=== PATIENT | female | born 1995 | race Caucasian/White ===

== ENCOUNTER 2020-05-14 08:56 | Emergency (ER) | payer BC ==
[~2020-05-14] VITALS: Ht 175.3 cm; Wt 67.3 kg
[2020-05-14] MEDS ORDERED: NORTREL 7/7/71 TAB PO (09:07)
[2020-05-14 09:25] LABS: BASO # 0.1 (0.0-0.2); BASO % 0.7 % (0.0-2.0); EOS # 0.3 (0.0-0.7); EOS % 2.4 % (0-4.0); GRAN # 8.5 (1.4-6.5); GRAN % 75.2 % (42.2-75.2); HEMATOCRIT 41.4 % (37.0-47.0); HEMOGLOBIN 13.5 g/dl (12.5-16.0); LYMPH % 17.9 % (20.0-51.0); MEAN CELL VOLUME 84 fl (80.0-100.0); MEAN CORPUSCULAR HEMOGLOBIN 28 pg (27.0-31.0); MEAN CORPUSCULAR HGB CONC 33 g/dl (33.0-37.0); MEAN PLATELET VOLUME 9.4 fl (7.4-10.4); MONO # 0.4 (0.1-0.6); MONO % 3.4 % (1.7-9.3); PLATELET COUNT 424 K/mm3 (130-400); RED BLOOD COUNT 4.91 M/mm3 (4.10-5.30); REDCELL DISTRIBUTION WIDTH-CV 13.2 % (11.5-14.5)
[2020-05-14 09:40] LABS: ALANINE AMINOTRANSFERASE 10 U/L (4-34); ALBUMIN 4.3 gm/dL (3.5-5.0); ALKALINE PHOSPHATASE 64 U/L (50-136); ANION GAP 11 mmol/L (7-16); AST,SGOT 18 U/L (15-37); BILIRUBIN,TOTAL 0.3 mg/dL (0.0-1.0); BLOOD UREA NITROGEN 13 mg/dL (7-17); C-REACTIVE PROTEIN 2.2 mg/dL (0.0-0.9); CALCIUM 9.2 mg/dL (8.4-10.2); CARBON DIOXIDE 24 mmol/L (22-30); CHLORIDE 102 mmol/L (98-107); CREATININE, serum 0.97 (0.52-1.25); GLUCOSE 102 mg/dL (74-106); POTASSIUM 3.8 mmol/L (3.4-5.0); SODIUM 138 mmol/L (137-145)
[2020-05-14 09:54] LABS: TROPONIN-I < 0.012 ng/mL (0.000-0.035)
[2020-05-14 10:35] VITALS: BP 132/77; PULSE 79; TEMP 98.1
== END 2020-05-14 10:35 | disposition home or self-care (01) ==
LOC: COL.ER 08:56
PROVIDERS: Emergency Medicine
DX: H53.8 Other visual disturbances (principal); R55 Syncope and collapse; Z32.02 Encounter for pregnancy test, result negative
CPT/HCPCS: J7030

== ENCOUNTER 2021-03-11 10:57 | Outpatient (CLI) | payer BC ==
[~2021-03-11] VITALS: Ht 175.4 cm; Wt 75.0 kg
[~2021-03-11 10:57] MED LIST: NORTREL 7/7/71 TAB PO
[2021-03-11] MEDS ORDERED: PROAMATINE 5MG T5 MG PO (11:22)
[2021-03-11] MEDS ORDERED: FLORINEF ACETA0.1 MG PO (11:23)
[2021-03-11] MEDS ORDERED: LEXAPRO 10MG10 MG PO (11:23)
[2021-03-11 11:37] VITALS: BP 110/80; PULSE 85; TEMP 98.5
--- NOTE | 2021-03-11 13:20 | NUR ---
PT RETURNED FROM [place] VIA W/C, HAS NO C/O AT THIS TIME, BUT REPORTED TO HAVE INCREASE HR AND FLUSHING DURING TILT. DR FLORES INTO SEE PT, STATES B/P DID NOT CHANGE, TALKED WITH PT AND MOTHER. 119/81 PULSE 89 RR AT 16 SATS 96%. REVIEWED DISCHARGE INST. WITH PT ON NEXT APPT. AND POST TILT INST. WITH VERBAL UNDERSTANDING. PT DISCHARGED AT 1400 AMB. WITH MOM TO CAR
== END 2021-03-11 14:00 | disposition home or self-care (01) ==
LOC: COL.CAR 10:57
DX: R42 Dizziness and giddiness (principal); R00.2 Palpitations; R07.9 Chest pain, unspecified; R55 Syncope and collapse; R00.0 Tachycardia, unspecified; Z79.899 Other long term (current) drug therapy; Z80.0 Family history of malignant neoplasm of digestive organs; Z83.3 Family history of diabetes mellitus; Z82.3 Family history of stroke